=== PATIENT | female | born 1965 | race Caucasian/White ===

== ENCOUNTER 2022-03-13 09:06 | Outpatient (CLI) | payer OTHER, SELFPAY ==
--- NOTE | 2022-03-13 09:15 | CRLHL7_ITS ---
For Patients: As a result of the Century Cures Act, medical imaging exams and procedure reports are released immediately into your electronic medical record. You may view this report before your referring provider. If you have questions, please contact your health care provider. BILATERAL SCREENING MAMMOGRAM WITH COMPUTER-AIDED DETECTION AND TOMOSYNTHESIS TECHNIQUE: CC and MLO views were obtained. These mammographic images have been obtained using full-field digital technique. These mammographic images were interpreted with the benefit of computer-aided detection. Breast Tomosynthesis was used in this interpretation. COMPARISON FILM: 03/11/21, 03/28/20, 03/27/19. FINDINGS: There are scattered areas of fibroglandular density IMPRESSION: There is no radiographic evidence for malignancy. ASSESSMENT: BI-RADS Category 1: Negative RECOMMENDATION: Routine screening mammogram in 1 year. A lay language report of this examination will be provided to the patient. Sid Abraham M.D. Diagnostic Radiologist [email or web address] [place]/Dictated by: Sid Abraham MD @ 03/13/2022 11:07:00 AM (Electronically Signed)
== END 2022-03-13 09:07 | disposition home or self-care (01) ==
LOC: MAMMO 09:09
PROVIDERS: PCP Family Medicine; Visit Provider Family Medicine
DX: Z12.31 Encounter for screening mammogram for malignant neoplasm of breast (principal)
CPT/HCPCS: 77063; 77067

== ENCOUNTER 2022-06-04 10:57 | Outpatient (CLI) | payer OTHER, SELFPAY ==
[2022-06-04 10:10] LABS: Albumin* 4.3 g/dL (3.3-5.0); Chloride* 104 mmol/L (96-114); Sodium* 141 mmol/L (135-149)
[2022-06-04 10:11] LABS: Potassium* 4.2 mmol/L (3.6-5.1)
[2022-06-04 10:13] LABS: Alanine Aminotransferase* 37 U/L (4-35); Alkaline Phosphatase* 100 U/L (40-150); Aspartate Amino Transferase* 31 U/L (12-35); Bilirubin Total* 0.5 mg/dL (0.1-1.5); Blood Urea Nitrogen* 16 mg/dL (7-30); Calcium* 9.3 mg/dL (8.4-10.6); Carbon Dioxide* 29 mmol/L (20-32); Cholesterol* 251 mg/dL (90-199); Creatinine* 0.8 mg/dL (0.5-1.5); Estimated Glomerular Filt Rate 86 ml/min; Glucose* 110 mg/dL (60-115); Total Protein* 6.9 g/dL (6.0-8.3); Triglycerides* 187 mg/dL (40-149)
[2022-06-04 10:14] LABS: HDL Cholesterol* 50 mg/dL (>=50); LDL Cholesterol Calculated 164 mg/dL (<100)
[2022-06-04 10:28] LABS: Vitamin D 25 Hydroxy* 37 ng/mL (30-80)
[2022-06-05 08:25] LABS: Free T4 Free Thyroxine* 1.07 ng/dL (0.70-1.85)
== END 2022-06-04 10:58 | disposition home or self-care (01) ==
PROVIDERS: PCP Family Medicine; Visit Provider Family Medicine
DX: Z01.419 Encounter for gynecological examination (general) (routine) without abnormal findings (principal); I10 Essential (primary) hypertension; E78.5 Hyperlipidemia, unspecified; E55.9 Vitamin D deficiency, unspecified; E03.9 Hypothyroidism, unspecified
CPT/HCPCS: 80053; 80061; 82306; 84439; 84443

== ENCOUNTER 2023-01-08 15:48 | Outpatient (CLI) | payer OTHER, SELFPAY | END 2023-01-08 15:49 | disposition home or self-care (01) | LOC: LKVREF 15:50 | PROVIDERS: PCP Family Medicine; Visit Provider Family Medicine | DX: E03.9 Hypothyroidism, unspecified (principal); E78.5 Hyperlipidemia, unspecified; E55.9 Vitamin D deficiency, unspecified | CPT/HCPCS: 84443 ==

== ENCOUNTER 2023-01-18 13:46 | Outpatient (CLI) | payer OTHER, SELFPAY ==
--- NOTE | 2023-01-18 14:00 | CRLHL7_ITS ---
For Patients: As a result of the Century Cures Act, medical imaging exams and procedure reports are released immediately into your electronic medical record. You may view this report before your referring provider. If you have questions, please contact your health care provider. INDICATION: Chronic sinusitis. TECHNIQUE: Noncontrast CT images acquired through the paranasal sinuses. COMPARISON: None. FINDINGS: Subtotal opacification of the left maxillary sinus and left ethmoid infundibulum. Minimal right maxillary sinus mucosal thickening. The right ethmoid infundibulum is widely patent. Minimal mucosal thickening in the frontal recesses. The frontal sinuses are otherwise clear. Minimal mucosal thickening in the ethmoid air cells. Mild mucosal thickening left sphenoid sinus. The right sphenoid sinus is clear. The sphenoethmoidal recesses are patent. Mild 2 mm rightward nasal septal deviation and 3 mm rightward nasal septal deviation. No nasal cavity masses. Small right mastoid effusion. IMPRESSION: 1. Subtotal opacification of the left maxillary sinus and left ethmoid infundibulum. 2. Otherwise, minimal paranasal sinus mucosal disease. 3. Minimal rightward nasal septal deviation and small rightward directed septal spur. Please note that all CT scans at this facility use dose modulation, iterative reconstruction, and/or weight-based dosing when appropriate to reduce radiation dose to as low as reasonably achievable. Dictated by Severiano Durand MD @ 01/18/2023 6:59:27 PM (Electronically Signed)
== END 2023-01-18 13:47 | disposition home or self-care (01) ==
LOC: CT 13:46
PROVIDERS: PCP Family Medicine; Visit Provider Family Medicine
DX: J32.9 Chronic sinusitis, unspecified (principal); J32.0 Chronic maxillary sinusitis; J34.2 Deviated nasal septum
CPT/HCPCS: 70486

== ENCOUNTER 2023-04-13 13:50 | Outpatient (CLI) | payer OTHER, SELFPAY ==
--- NOTE | 2023-04-13 14:00 | CRLHL7_ITS ---
For Patients: As a result of the Century Cures Act, medical imaging exams and procedure reports are released immediately into your electronic medical record. You may view this report before your referring provider. If you have questions, please contact your health care provider. BILATERAL SCREENING MAMMOGRAM WITH COMPUTER-AIDED DETECTION AND TOMOSYNTHESIS TECHNIQUE: CC and MLO views were obtained. These mammographic images have been obtained using full-field digital technique. These mammographic images were interpreted with the benefit of computer-aided detection. Breast Tomosynthesis was used in this interpretation. COMPARISON FILM: 03/13/22, 03/11/21, 03/28/20. FINDINGS: There are scattered areas of fibroglandular density IMPRESSION: There is no radiographic evidence for malignancy. ASSESSMENT: BI-RADS Category 1: Negative RECOMMENDATION: Routine screening mammogram in 1 year. A lay language report of this examination will be provided to the patient. Sid Abraham M.D. Diagnostic Radiologist [email or web address] [place]/Dictated by: Sid Abraham MD @ 04/14/2023 12:42:00 PM (Electronically Signed)
== END 2023-04-13 13:51 | disposition home or self-care (01) ==
LOC: MAMMO 13:51
PROVIDERS: PCP Family Medicine; Visit Provider Family Medicine
DX: Z12.31 Encounter for screening mammogram for malignant neoplasm of breast (principal)
CPT/HCPCS: 77063; 77067

== ENCOUNTER 2023-09-22 10:15 | Outpatient (RCR) | payer OTHER, SELFPAY | END 2023-10-12 09:48 | disposition home or self-care (01) | PROVIDERS: PCP Family Medicine; Visit Provider Orthopaedic Surgery | DX: M25.512 Pain in left shoulder (principal); M75.102 Unspecified rotator cuff tear or rupture of left shoulder, not specified as traumatic; M62.81 Muscle weakness (generalized); Z51.89 Encounter for other specified aftercare | CPT/HCPCS: 80053; 80061; 82306; 84443; 97110; 97140; 97161 ==

== ENCOUNTER 2023-10-08 12:29 | Emergency (ER) | payer OTHER, SELFPAY ==
[2023-10-08 12:36] VITALS: BP 176/83; PULSE 62; RESP 16; TEMP 36.3; O2SAT 99
--- NOTE | 2023-10-08 13:18 | ED.GENADULT ---
HPI - General Adult General Chief complaint: Extremity Pain/Injury, Upper Stated complaint: arm pain Time Seen by Provider: 10/08/23 12:37 History of Present Illness HPI narrative: This 58-year-old female comes in reporting bilateral shoulder pain for the past several months. 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 She did see orthopedic surgeon about a month later which is about 4 months ago now and there was suspicion of rotator cuff impingement or bursitis. She did have an x-ray of her left shoulder with no acute findings. There was discussion about doing MRI but due to the cost and unlikely benefit for changing the treatment plan the MRI was not done. The patient did go through some physical therapy in this did help some. Since then she has started Crestor for lipid management and she wonders if this might be causing the pain. Her shoulder pain pre existed starting this medication. She states that she is having trouble sleeping at night due to shoulder pain. Related Data Home Medications Medication Instructions Recorded Confirmed cholecalciferol (vitamin D3) 10 400 unit PO BID 06/04/22 10/08/23 mcg (400 unit) tablet fluticasone propionate 50 1 spray intranasal QDAY PRN 08/13/23 10/08/23 mcg/actuation nasal spray,suspension (Allergy Relief (fluticasone)) Previous Rx's Medication Instructions Recorded hydrochlorothiazide 12.5 mg capsule 12.5 mg PO QDAY #90 caps 08/13/23 levothyroxine 75 mcg tablet 75 mcg PO QDAY #90 tabs 08/13/23 metoprolol succinate 100 mg 100 mg PO QDAY #90 tabs 08/13/23 tablet,extended release 24 hr rosuvastatin 5 mg tablet 5 mg PO QDAY #90 tabs 08/13/23 hydrocodone 5 mg-acetaminophen 325 1 tab PO Q4-6H PRN pain #15 tabs 10/08/23 mg tablet ketorolac 10 mg tablet 10 mg PO Q8H 5 days #15 tabs 10/08/23 Allergies Allergy/AdvReac Type Severity Reaction Status Date / Time Penicillins AdvReac Mild yeast Verified 10/08/23 12:35 infection Review of Systems Status of ROS: Reports: 10 or more systems reviewed and unremarkable except as noted in History and below Narrative: Constitutional: No fevers, no weight gain or loss. Eyes: No discharge. No vision changes. HENT: No congestion, no sore throat, no ear pain. Cardiovascular: No chest pain, no palpitations. Respiratory: No shortness of breath, no wheezes, no cough. Gastrointestinal: No abdominal pain, no vomiting, no diarrhea. Genitourinary: No dysuria, no hematuria. Musculoskeletal: Normal range of motion. Bilateral shoulder pain. Skin: No rashes, no pruritis. Neurological: No dizziness, weakness, sensory change, speech change. Endo/Heme/Allergies: No bruising or bleeding. No polydipsia. Pysch: no suicidality, no anxiety, no insomnia. All other systems reviewed and are negative. [facility] Medical History (Updated 10/08/23 @ 13:25 by Yang Mckeon MD) Prediabetes (08/13/23) ?R73.03 - Prediabetes (ICD-10) White coat syndrome with diagnosis of hypertension ?I10 - Essential (primary) hypertension (ICD-10) Endometrial hyperplasia (10/13/12) ?N85.00 - Endometrial hyperplasia, unspecified (ICD-10) Surgical History Normal colonoscopy History of third molar tooth extraction ?K08.409 - Partial loss of teeth, unspecified cause, unspecified class (ICD-10) History of hysteroscopy (10/26/12) ?Z98.890 - Other specified postprocedural states (ICD-10) History of section (1998) ?Z98.891 - History of uterine scar from previous surgery (ICD-10) Family History (Updated 08/13/23 @ 13:31 by Ilda Lee MD) Son Bipolar disorder Sister Celiac disease Carotid artery stenosis Family/Other High blood pressure Father High blood pressure Prostate cancer Maternal Grandmother Thyroid disease Brother Prostate cancer Social History (Updated 08/13/23 @ 13:31 by Ilda Lee MD) 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 HEENT: Normocephalic, atraumatic. Neck: Normal range of motion. Nontender. Supple. Heart: Regular. No murmurs. Normal rate. Intact distal pulses. Lungs: Clear to auscultation. No chest discomfort. No wheezes, rhonchi, or rales. Abdomen: Normal bowel sounds. Nontender. No rebound tenderness. Genitalia: Deferred. Back: No midline tenderness. Normal range of motion. Extremities: The patient has normal range of motion of both shoulders but indicates pain with doing it. There is no sign of deformity or swelling. Skin: Intact. No rash. Warm. No erythema or pallor. Neurologic: No altered sensation. No weakness. Alert and oriented. Psychiatric: No suicidality. No anxiety or depression. No insomnia. Nursing notes and vitals signs are reviewed. Const: Vital Signs, click to edit/add: Vital Signs - 24 hr 10/08/23 12:36 Temperature 97.4 F L Pulse Rate [Pulse Oximeter] 62 Respiratory Rate 16 Blood Pressure [Ri ght Upper Arm] 176/83 H Pulse Oximetry 99 Oxygen Delivery Me thod Room Air Course Vital Signs Vital signs: Initial Vital Signs Temperature 97.4 F L 10/08/23 12:36 Temperature Source Temporal Artery Scan 10/08/23 12:36 Pulse Rate 62 10/08/23 12:36 Respiratory Rate 16 10/08/23 12:36 Blood Pressure 176/83 H 10/08/23 12:36 Blood Pressure Mean 114 H 10/08/23 12:36 Blood Pressure Position Sitting 10/08/23 12:36 Pulse Oximetry 99 10/08/23 12:36 Oxygen Delivery Method Room Air 10/08/23 12:36 Vital Signs Temperature 97.4 F L 10/08/23 12:36 Pulse Rate 62 10/08/23 12:36 Respiratory Rate 16 10/08/23 12:36 Blood Pressure 176/83 H 10/08/23 12:36 Pulse Oximetry 99 10/08/23 12:36 Oxygen Delivery Method Room Air 10/08/23 12:36 Temperature 97.4 F L 10/08/23 12:36 Pulse Rate 62 10/08/23 12:36 Respiratory Rate 16 10/08/23 12:36 Blood Pressure 176/83 H 10/08/23 12:36 Pulse Oximetry 99 10/08/23 12:36 Oxygen Delivery Method Room Air 10/08/23 12:36 Medical Decision Making MDM Narrative Medical decision making narrative: This patient comes in with bilateral shoulder pain and does have frequent use of her shoulders with her job. She did present orthopedic clinic several months ago and there was suspicion of rotator cuff tendinopathy or bursitis. She has been taking Tylenol or ibuprofen occasionally without much relief. She brings the question that this may be an adverse effect to starting Crestor however her symptoms pre existed starting this medicine. I did present options going forward including imaging studies and treatment options. The patient did receive prescriptions for Toradol and [place]. Discharge Plan Discharge Clinical Impression: Bilateral shoulder pain Patient Disposition: Home, Self-Care Condition: Unchanged Additional Instructions: Take medication as prescribed and needed. Activity as tolerated. Follow-up with orthopedic clinic. Call [phone] for appointment. Prescriptions: New hydrocodone-acetaminophen 5-325 mg tablet 1 tab PO Q4-6H PRN (Reason: pain) Qty: 15 0RF ketorolac 10 mg tablet 10 mg PO Q8H 5 Days Qty: 15 0RF No Action cholecalciferol (vitamin D3) 10 mcg (400 unit) tablet 400 unit PO BID fluticasone propionate [Allergy Relief (fluticasone)] 50 mcg/actuation spray,suspension 1 spray intranasal QDAY PRN Rx Instructions: administer into each nostril metoprolol succinate 100 mg tablet extended release 24 hr 100 mg PO QDAY Qty: 90 3RF levothyroxine 75 mcg tablet 75 mcg PO QDAY Qty: 90 3RF hydrochlorothiazide 12.5 mg capsule 12.5 mg PO QDAY Qty: 90 3RF rosuvastatin 5 mg tablet 5 mg PO QDAY Qty: 90 3RF Follow Up/Referrals: Ilda Lee MD [Primary Care Provider] - Stand Alone Forms: Meet My Friend[employer] Info Instructions
--- OUTSIDE RECORDS SUMMARY | 2023-10-08 13:28 | XMS_ITS | Clinical Summary ---
Author Name Unknown Organization [facility] Address [place], [place] [address] Care Team Providers Care Yarn Skeins Examiner Name Role Phone Beata Chen MD Primary Care Provider Allergies Active Allergy Reactions Criticality Noted Date Comments Penicillins Yeast Infection (NO INFECTIONS WITH LAST FEW Rx's) Medications Medication Sig Dispensed Refills Start Date End Date Status levothyroxine (SYNTHROID) 75 mcg tabletIndications:Unspe cified hypothyroidism TAKE 1 TABLET BY MOUTH BEFORE BREAFAST. 90 tablet 0 05/30/2013 Active metoprolol (LOPRESSOR) 50 mg tablet TAKE 1 TABLET BY MOUTH TWO TIMES A DAY . 60 tablet 1 07/01/2013 Active hydrochlorothiazide (HCTZ) 25 mg tablet TAKE 1/2 TABLET BY MOUTH ONCE DAILY 30 tablet 0 11/01/2013 Active Active Problems Problem Noted Date Diagnosed Date Simple endometrial hyperplasia without atypia Premenopausal menorrhagia 09/14/2011 Endometrial polyp 09/14/2011 Unspecified hypothyroidism 05/06/2007 Unspecified asthma(493.90) 04/16/2006 Unspecified essential hypertension 04/16/2006 Immunizations Name Administration Dates Next Due Influenza, IIV3 (Age >=3 years) 04/26/2012,03/21,05/06/2007,04/15/2006 MMR 09/01/2006 Td (Age >=7 Years) 03/24/2000,11/08/1989 Tdap 03/21/2010 Family History Medical History Relation Name Comments Cancer-prostate Father CANCER WITH METASTASIS TO BONE, ALLERGIES, HYPERTENSION Good Health Mother Osteoporosis Sister 2 GI Disease Sister 3 Celiac Relation Name Status Comments Brother Alive Child Alive x3, DALTON 05/31/96, WILLIAM 11/27/98, MONSERRAT 09/01/00 Father (Age 73) BORN 192 Mother Alive BORN 1924 Sister 1 Alive x3 Sister 2 Sister 3 Social History Tobacco Use Types Packs/Day Years Used Date Smoking Tobacco: Never Smokeless Tobacco: Never Alcohol Use Standard Drinks/Week Comments No 0 (1 standard drink = 0.6 oz pur e alcohol) Sex and Gender Information Value Date Recorded Sex Assigned at Not on file Gender Identity Not on file Sexual Orientation Not on file Obstetrics History Para Term AB IAB SAB Ectopic Multiple Livin g Live Births 3 3 3 Date Outcome GA Total Labor Labor/2nd/3rd Weight Sex Delivery Anes PTL Esthela A1 A5 Name Cl in Para Vag Para Vag Para Last Filed Vital Signs Vital Sign Reading Time Taken Comments Blood Pressure 128/82 06/08/2012 1:17 PM INTAKE MAN Pulse 79 04/28/2012 3:20 PM [facility]TAKE MAN Temperature 36.6 ??C (97.9 ??F) 06/08/2012 1:17 PM CS T Respiratory Rate 18 04/28/2012 3:20 PM INTAKE MAN Oxygen Saturation 98% 04/28/2012 3:20 PM INTAKE MAN Inhaled Oxygen Concentration - - Weight 76.2 kg (168 lb) 06/08/2012 1:17 PM INTAKE MAN Height 162.6 cm (5' 4) 04/28/2012 10:55 AM INTAKE MAN Body Mass Index 28.84 04/28/2012 10:55 AM INTAKE MAN Plan of Treatment Health Maintenance Due Date Last Done Comments Depression screening for age 12+ 1977 HIV for age 15-65 02/29/1980 BMI (ht and wt on same day) for age 18+ 1983 Hepatitis C screening for age 18-79 1983 Colonoscopy through age 75 2010 Mammogram for age 45-75 10/21/2012 10/22/19 12, 03/26/2010, 07/20/2008, Additional history exists Zoster (shingles) series for age 50+ (1 of 2) 2015 Lipids for age 45-75 10/25/2015 10/24/2010, 07/06/2008, 04/21/2006 Tetanus booster 03/21/2020 03/21/2010, 03/01, 11/08/1989 Pap test for age 21-65 06/28/2022 0, 06/28/2019, 02/27/2015, Additional history exists COVID-19 vaccine series ( season) 2023 Influenza for age 50-64 01/30/2024 04/26/20 12, 03/21/2010, 05/06/2007, Additional history exists Tdap Completed 03/21/2010 Pneumococcal series for age 6-64 Aged Out No longer eligible based on patient's age to complete this topic Procedures Procedure Name Priority Date/Time Associated Diagnosis Comments LOCKMAKER THIN PREP PAP SCREEN IMAGED Routine 06/28/2019 8:14 AM INTAKE MAN XR MAMMO BILAT SCREEN FFDM (IA) Routine 10/22/2011 11:00 AM CDT Screening mammogram LIPID PANEL W REFLEX MEASURED LDL Timed 10/24/2010 8:35 AM CDT Screening, lipid from Last 3 Months or Most Recently Relevant to Health Maintenance Results * LOCKMAKER THIN PREP PAP SCREEN IMAGED (06/28/2019 8:14 AM INTAKE MAN) Case Report Gynecologic Cytology Report ? Case: [id number] ? Authorizing Provider: ??Ilda Lee MD ??Collected: ? 06/28/2019 0814 ? Ordering Location: ? [facility] ?Received: ?06/29/2019 0933 ? First Screen: ?Lisliz, Alexis ? Rescreen: ?[place] ? Specimen: ?LOCKMAKER ThinPrep Vial Screening, Cervical/Vaginal ? 07/10/2019 2:39 PM [facility] INTERPRETATION/ RESULT NEGATIVE FOR INTRAEPITHELIAL LESION OR MALIGNANCY (NIL) (none) 07/10/2019 2:[address] [facility] IMEN ADEQUACY Satisfactory for evaluation Endocervical cells cannot be evaluated due to severe atrophy 07/10/2019 2:39 PM [facility] HPV REQUEST HPV and PAP 07/10/2019 2:39 PM [facility] Additional Information 07/10/2019 2:39 PM [facility] Comment: Interpreted at [facility] - [address] [facility] [address], [place] [address] Automated Review Successful 07/10/2019 2:[address] [facility] Comment:Specimen processed s uccessfully by automated recovery rn device, ThinPrep Imaging System, [employer] ANCILLARY TESTING LOCKMAKER HPV Ordered, Please see separate report 07/10/2019 2:39 PM [facility] Note The pap test is a screening technique, not a diagnostic procedure. It is used primarily to screen for squamous cancers and precursor lesions. Published studies have shown that it is subject to both false negative and false positive results. The pap test should not be used as the sole means to diagnose or exclude pre-malignant and malignant lesions. 07/10/2019 2:39 PM INTAKE MAN [facility] Other (Cervical/Vagina l) 06/28/2019 8:14 AM INTAKE MAN 06/29/2019 9:33 AM INTAKE MAN Ilda Lee MD PATHOLOGY/CYTOLO GY [facility] [address] [place] [address], [place] * XR MAMMO BILAT SCREEN FFDM (10/22/2011 11:00 AM CDT) Anatomical Region Laterality Modality BREASTS, Breast Left, Breast Right Bilateral Mammography Impressions 10/22/2011 1:53 PM CDT ??There is no radiographic evidence for malignancy. ??Recommend annual mammograms. A lay language report of this examination will be provided to the patient. MAMMOGRAM ASSESSMENT: ??ACR 1 Negative Narrative 10/22/2011 1:53 PM CDT XR MAMMO BILAT SCREEN FFDM [G0202.0] CLINICAL HISTORY: ??This is an asymptomatic 46 y.o. patient. INDICATION FOR EXAM: Mammogram Screening. TECHNIQUE: CC & MLO views were obtained. ??This digital study was evaluated with the assistance of Computer-Aided Detection. ?? COMPARISON FILM: Yes 03/26/10 [facility] 07/20/08 [facility] FINDINGS: ??Mammographically, the breast tissue has scattered fibroglandular densities (approximately 25% - 50% glandular). ??There are no dominant masses, suspicious micro calcifications or areas of architectural distortion. Procedure Note Akbar Gilliam MD - 10/22/2011 XR MAMMO BILAT SCREEN FFDM [G0202.0] CLINICAL HISTORY: This is an asymptomatic 46 y.o. patient. INDICATION FOR EXAM: Mammogram Screening. TECHNIQUE: CC & MLO views were obtained. This digital study was evaluatedwith the assistance of Computer-Aided Detection. COMPARISON FILM: Yes 03/26/10 [facility] 07/20/08 [facility] FINDINGS: Mammographically, the breast tissue has scatteredfibroglandular densities (approximately 25% - 50% glandular). There areno dominant masses, suspicious micro calcifications or areas ofarchitectural distortion. IMPRESSION: There is no radiographic evidence for malignancy. Recommendannual mammograms. A lay language report of this examination will be provided to the patient. MAMMOGRAM ASSESSMENT: ACR 1 Negative Beata Chen MD MAMMO * (ABNORMAL) LIPID PANEL W REFLEX MEASURED LDL (10/24/2010 8:35 AM CDT) CHOLESTEROL,TOTAL 183 110 - 199 mg/dL [facility] TRIGLYCERIDES 124 <150 mg/dL [facility] HDL CHOLESTEROL 35(L) >40 mg/dL [facility] CHOL/HDL RATIO 5.23(H) <4.51 [facility] LDL CHOLESTEROL 123 60 - 130 mg/dL [facility] PATIENT STATUS Fasting [facility] Blood specimen (specimen) BLOOD SPECIMEN / Unknown 10/24/2010 8:35 AM CDT 10/24/2010 8:27 AM CDT Beata Chen MD CHEMISTRY [facility] [address] [place] [address] from Last 3 Months or Most Recently Relevant to Health Maintenance Advance Directives * Full Code (Latest Code Status on File) Date Activated Date Inactivated Comments 04/28/2012 11:01 AM 04/28/2012 6:26 PM * Full Code Date Activated Date Inactivated Comments 11/17/2011 8:38 AM 11/17/2011 5:35 PM Care Teams Yarn Skeins Examiner Relationship Specialty Start Date End Date Beata Chen MD [address] [place] [address] PCP - General 02/06/05
== END 2023-10-08 13:43 | disposition home or self-care (01) ==
PROVIDERS: Emergency Provider Emergency Medicine Emergency Medical Services; PCP Family Medicine
DX: M25.512 Pain in left shoulder (principal); M25.511 Pain in right shoulder
CPT/HCPCS: 99283; 99284

== ENCOUNTER 2023-11-15 07:40 | Outpatient (CLI) | payer OTHER, SELFPAY ==
--- OUTSIDE RECORDS SUMMARY | 2023-11-17 03:08 | XMS_ITS | Clinical Summary ---
Author Organization [employer] [facility] [employer] [facility] Address [place], [place] [address] Care Team Providers Care Lead Carpenter Name Role Phone Beata Chen MD Primary [...] 11/27/98, [place] 09/01/00 Father (Age 73) BORN 1922 Mother Alive BORN 1924 Sister 1 Alive [...] 3 3 Date Outcome GA Total Labor Labor//3rd Weight Sex Type Anes PTL Esthela A1 A5 Name Clin Para Vag Para Vag Para C-Secti on Last Filed Vital Signs Vital Sign Reading Time Taken Comments Blood Pressure 128/82 06/08/2012 1:17 PM MOLD SHEET CLEANER Pulse 79 04/28/2012 3:20 PM MOLD SHEET CLEANER Temperature 36.6 ??C (97.9 ??F) 06/08/2012 1:17 PM CS T Respiratory Rate 18 04/28/2012 3:20 PM MOLD SHEET CLEANER Oxygen Saturation 98% 04/28/2012 3:20 PM MOLD SHEET CLEANER Inhaled Oxygen Concentration - - Weight 76.2 kg (168 lb) 06/08/2012 1:17 PM MOLD SHEET CLEANER Height 162.6 cm (5' 4) 04/28/2012 10:55 AM MOLD SHEET CLEANER Body Mass Index 28.84 04/28/2012 10:55 AM MOLD SHEET CLEANER Plan of Treatment Health Maintenance Due Date [...] 02/27/2015, Additional history exists COVID-19 vaccine series (2022-24 season) 2023 Influenza for age 50-64 01/30/2024 04/26/20 12, 03/21/2010, 05/06/2007, Additional history exists Tdap Completed 03/21/2010 Pneumococcal series for age 6-64 Aged Out No longer eligible based on patient's age to complete this topic Procedures Procedure Name Priority Date/Time Associated Diagnosis Comments FRENCH PASTRY COOK THIN PREP PAP SCREEN IMAGED Routine 06/28/2019 8:14 AM MOLD SHEET CLEANER XR MAMMO BILAT SCREEN FFDM (IA) Routine 10/22/2011 11:00 AM CDT Screening mammogram LIPID PANEL W REFLEX MEASURED LDL Timed 10/24/2010 8:35 AM CDT Screening, lipid from Last 3 Months or Most Recently Relevant to Health Maintenance Results * FRENCH PASTRY COOK THIN PREP PAP SCREEN IMAGED (06/28/2019 8:14 AM MOLD SHEET CLEANER) Case Report Gynecologic Cytology Report ? Case: [id number] ? Authorizing Provider: ??Ilda Lee MD ??Collected: ? 06/28/2019 0814 ? Ordering Location: ? [facility] ?Received: ?06/29/2019 0933 ? First Screen: ?Sondra, Alexis ? Rescreen: ?[place] ? Specimen: ?FRENCH PASTRY COOK ThinPrep Vial Screening, Cervical/Vaginal ? 07/10/2019 2:39 PM [facility] INTERPRETATION/ RESULT NEGATIVE FOR INTRAEPITHELIAL LESION OR MALIGNANCY (NIL) (none) 07/10/2019 2:39 PM [facility] IMEN ADEQUACY Satisfactory for evaluation Endocervical cells cannot be evaluated due to severe atrophy 07/10/2019 2:39 PM [facility] HPV REQUEST HPV and PAP 07/10/2019 2:39 PM [facility] Additional Information 07/10/2019 2:39 PM [facility] Comment: Interpreted at [facility], Central Laboratory - [address] [facility] [address] [address] Automated Review Successful 07/10/2019 2:39 PM [facility] Comment:Specimen processed s uccessfully by automated economic research assistant device, ThinPrep Imaging System, [employer] ANCILLARY TESTING FRENCH PASTRY COOK HPV Ordered, Please see separate report 07/10/2019 2:39 PM [facility] Note The pap test is [...] pre-malignant and malignant lesions. 07/10/2019 2:39 PM MOLD SHEET CLEANER [facility] Other (Cervical/Vagina l) 06/28/2019 8:14 AM MOLD SHEET CLEANER 06/29/2019 9:33 AM MOLD SHEET CLEANER Ilda Lee MD PATHOLOGY/[facility] [address] [place] [address], [place] * XR MAMMO BILAT SCREEN FFDM [...] Computer-Aided Detection. ?? COMPARISON FILM: Yes 03/26/10 [facility] 07/20/08 [facility] FINDINGS: ??Mammographically, the breast tissue [...] of Computer-Aided Detection. COMPARISON FILM: Yes 03/26/10 [facility] 07/20/08 [facility] FINDINGS: Mammographically, the breast tissue [...] CDT) CHOLESTEROL,TOTAL 183 110 - 199 mg/dL [facility] TRIGLYCERIDES 124 <150 mg/dL [facility] HDL CHOLESTEROL 35(L) >40 mg/dL [facility] CHOL/HDL RATIO 5.23(H) <4.51 [facility] LDL CHOLESTEROL 123 60 - 130 mg/dL [facility] PATIENT STATUS Fasting [facility] Blood specimen (specimen) BLOOD SPECIMEN / Unknown 10/24/2010 8:35 AM CDT 10/24/2010 8:27 AM CDT Beata Chen MD CHEMISTRY [facility] [address] [place] [address] from Last 3 Months or Most Recently Relevant to Health Maintenance Advance Directives * Full Code (Latest Code Status on File) Date Activated Date Inactivated Comments 04/28/2012 11:01 AM 04/28/2012 6:26 PM * Full Code Date Activated Date Inactivated Comments 11/17/2011 8:38 AM 11/17/2011 5:35 PM Care Teams Lead Carpenter Relationship Specialty Start Date End Date Beata Chen MD [address] [place] [address] PCP - General 02/06/05
== END 2023-11-15 07:41 | disposition home or self-care (01) ==
LOC: NFLDREF 11-17 03:06
PROVIDERS: PCP Family Medicine; Referring Provider Family Medicine; Visit Provider Family Medicine
DX: E78.5 Hyperlipidemia, unspecified (principal)
CPT/HCPCS: 80061

== ENCOUNTER 2024-04-14 14:52 | Outpatient (CLI) | payer OTHER, SELFPAY ==
--- OUTSIDE RECORDS SUMMARY | 2024-04-14 14:54 | XMS_ITS | Clinical Summary ---
Author Organization [employer] [facility] [employer] [facility] Address [place], [place] [address] Care Team Providers Care Physical Medicine Teacher Name Role Phone Beata Chen MD Primary [...] Comments Blood Pressure 128/82 06/08/2012 1:17 PM LEAD CARE MANAGER Pulse 79 04/28/2012 3:20 PM LEAD CARE MANAGER Temperature 36.6 ??C (97.9 ??F) 06/08/2012 1:17 PM CS T Respiratory Rate 18 04/28/2012 3:20 PM LEAD CARE MANAGER Oxygen Saturation 98% 04/28/2012 3:20 PM LEAD CARE MANAGER Inhaled Oxygen Concentration - - Weight 76.2 kg (168 lb) 06/08/2012 1:17 PM LEAD CARE MANAGER Height 162.6 cm (5' 4) 04/28/2012 10:55 AM LEAD CARE MANAGER Body Mass Index 28.84 04/28/2012 10:55 AM LEAD CARE MANAGER Plan of Treatment Health Maintenance Due Date [...] 02/27/2015, Additional history exists COVID-19 vaccine series (2023- season) 2024 Influenza for age 50-64 01/30/2024 04/26/20 12, 03/21/2010, 05/06/2007, Additional history exists Tdap Completed 03/21/2010 Pneumococcal series for age 6-64 Aged Out No longer eligible based on patient's age to complete this topic Procedures Procedure Name Priority Date/Time Associated Diagnosis Comments RETAIL BRAND AMBASSADOR THIN PREP PAP SCREEN IMAGED Routine 06/28/2019 8:14 AM LEAD CARE MANAGER XR MAMMO BILAT SCREEN FFDM (IA) Routine 10/22/2011 11:00 AM CDT Screening mammogram LIPID PANEL W REFLEX MEASURED LDL Timed 10/24/2010 8:35 AM CDT Screening, lipid from Last 3 Months or Most Recently Relevant to Health Maintenance Results * RETAIL BRAND AMBASSADOR THIN PREP PAP SCREEN IMAGED (06/28/2019 8:14 AM LEAD CARE MANAGER) Case Report Gynecologic Cytology Report ? Case: [id number] ? Authorizing Provider: ??Idla Lee MD ??Collected: ? 06/28/2019 0814 ? Ordering Location: ? [facility] ?Received: ?06/29/2019 0933 ? First Screen: ?Sondra, Alexis ? Rescreen: ?[place] ? Specimen: ?RETAIL BRAND AMBASSADOR ThinPrep Vial Screening, Cervical/Vaginal ? 07/10/2019 2:39 PM [facility] INTERPRETATION/ RESULT NEGATIVE FOR INTRAEPITHELIAL LESION OR MALIGNANCY (NIL) (none) 07/10/2019 2:39 PM [facility] IMEN ADEQUACY Satisfactory for evaluation Endocervical cells cannot be evaluated due to severe atrophy 07/10/2019 2:39 PM [facility] HPV REQUEST HPV and PAP 07/10/2019 2:39 PM [facility] Additional Information 07/10/2019 2:39 PM [facility] Comment: Interpreted at [facility], Central Laboratory - [address] [facility] [address], [place] [address] Automated Review Successful 07/10/2019 2:39 PM [facility] Comment:Specimen processed s uccessfully by automated loom operator apprentice device, ThinPrep Imaging System, [employer] ANCILLARY TESTING RETAIL BRAND AMBASSADOR HPV Ordered, Please see separate report 07/10/2019 2:39 PM [facility] Note The pap test is a screening technique, not a diagnostic procedure. It is used primarily to screen for squamous cancers and precursor lesions. Published studies have shown that it is subject to both false negative and false positive results. The pap test should not be used as the sole means to diagnose or exclude pre-malignant and malignant lesions. 07/10/2019 2:39 PM LEAD CARE MANAGER [facility] Other (Cervical/Vagina l) 06/28/2019 8:14 AM LEAD CARE MANAGER 06/29/2019 9:33 AM LEAD CARE MANAGER Ilda Lee MD PATHOLOGY/[facility] [address] [place] [address], [place] * XR MAMMO BILAT SCREEN FFDM [...] Computer-Aided Detection. ?? COMPARISON FILM: Yes 03/26/10 [facility] 07/20/08 [facility] FINDINGS: ??Mammographically, the breast tissue has [...] of Computer-Aided Detection. COMPARISON FILM: Yes 03/26/10 [facility] 07/20/08 [facility] FINDINGS: Mammographically, the breast tissue has [...] CDT) CHOLESTEROL,TOTAL 183 110 - 199 mg/dL [facility] TRIGLYCERIDES 124 <150 mg/dL [facility] HDL CHOLESTEROL 35(L) >40 mg/dL [facility] CHOL/HDL RATIO 5.23(H) <4.51 [facility] LDL CHOLESTEROL 123 60 - 130 mg/dL [facility] PATIENT STATUS Fasting [facility] Blood specimen (specimen) BLOOD SPECIMEN / Unknown 10/24/2010 8:35 AM CDT 10/24/2010 8:27 AM CDT Beata Chen MD CHEMISTRY [facility] [address] [place] [place] [address] from Last 3 Months or Most Recently Relevant to Health Maintenance Advance Directives * Full Code (Latest Code Status on File) Date Activated Date Inactivated Comments 04/28/2012 11:01 AM 04/28/2012 6:26 PM * Full Code Date Activated Date Inactivated Comments 11/17/2011 8:38 AM 11/17/2011 5:35 PM Care Teams Physical Medicine Teacher Relationship Specialty Start Date End Date Beata Chen MD [address] [place] [address] PCP - General 02/06/05
--- NOTE | 2024-04-14 15:00 | CRLHL7_ITS ---
For Patients: As a result of the Century Cures Act, medical imaging exams and procedure reports are released immediately into your electronic medical record. You may view this report before your referring provider. If you have questions, please contact your health care provider. BILATERAL SCREENING MAMMOGRAM WITH COMPUTER-AIDED DETECTION AND TOMOSYNTHESIS TECHNIQUE: CC and MLO views were obtained. These mammographic images have been obtained using full-field digital technique. These mammographic images were interpreted with the benefit of computer-aided detection. Breast Tomosynthesis was used in this interpretation. COMPARISON FILM: 04/13/23, 03/13/22, 03/11/21. FINDINGS: There are scattered areas of fibroglandular density. IMPRESSION: There is no radiographic evidence for malignancy. ASSESSMENT: BI-RADS Category 1: Negative RECOMMENDATION: Routine screening mammogram in 1 year. A lay language report of this examination will be provided to the patient. Sid Abraham M.D. Diagnostic Radiologist [email or web address] SP/Dictated by: Sid Abraham MD @ 04/17/2024 9:49:00 AM (Electronically Signed)
== END 2024-04-14 14:53 | disposition home or self-care (01) ==
LOC: MAMMO 14:53
PROVIDERS: PCP Family Medicine; Visit Provider Family Medicine
DX: Z12.31 Encounter for screening mammogram for malignant neoplasm of breast (principal)
CPT/HCPCS: 77063; 77067

== ENCOUNTER 2024-08-29 07:50 | Outpatient (CLI) | payer BC, SELFPAY | END 2024-08-29 07:51 | disposition home or self-care (01) | LOC: NFLDREF 22:40 | PROVIDERS: PCP Family Medicine; Referring Provider Family Medicine; Visit Provider Family Medicine | DX: E03.9 Hypothyroidism, unspecified (principal); I10 Essential (primary) hypertension; E78.5 Hyperlipidemia, unspecified; R73.01 Impaired fasting glucose | CPT/HCPCS: 80053; 80061; 84439; 84443 ==

== ENCOUNTER 2024-08-30 08:11 | Outpatient (CLI) | payer BC, SELFPAY ==
[2024-09-01 04:35] LABS: HPV Source Cervix; HPV, High Risk by TMA Not Detected
== END 2024-08-30 08:12 | disposition home or self-care (01) ==
PROVIDERS: PCP Family Medicine; Visit Provider Family Medicine
DX: Z12.4 Encounter for screening for malignant neoplasm of cervix (principal); Z11.51 Encounter for screening for human papillomavirus (HPV)
CPT/HCPCS: 87624; 87625; 88141; 88142

== ENCOUNTER 2025-03-26 09:29 | Outpatient (CLI) | payer BC, SELFPAY ==
--- NOTE | 2025-03-26 10:32 | P.ANES_ITS ---
Anesthesia Charges Start Date/Time Anesthesia Start Date: 03/26/25 Anesthesia Start Time: 09:55 Stop Date/Time Anesthesia Stop Date: 03/26/25 Anesthesia Stop Time: 10:24 Coding CPT Codes CPT Codes: ANÍBAL LWR INTST NDSC NOS - 70815 ([id number]) P2 - PATIENT W/MILD SYST DISEASE, QK - SATIN FINISHER 2-4 CNCRNT ANES PROC, QX - HOTEL DINING ROOM CASHIER SVC W/ MD MED DIRECTION
--- NOTE | 2025-03-26 10:32 | W.ANESCHARGE ---
Anesthesia Charges Start Date/Time Anesthesia Start Date: 03/26/25 Anesthesia Start Time: 09:55 Stop Date/Time Anesthesia Stop Date: 03/26/25 Anesthesia Stop Time: 10:24 Coding CPT Codes CPT Codes: ANÍBAL LWR INTST NDSC NOS - 60783 ([id number]) P2 - PATIENT W/MILD SYST DISEASE, QK - MANUFACTURING ENGINEER ASSEMBLY 2-4 CNCRNT ANES PROC, QX - CONSULTING SME SVC W/ MD MED DIRECTION
--- NOTE | 2025-03-26 10:54 | P.ANES_ITS ---
Anesthesia Charges Start Date/Time Anesthesia Start Date: 03/26/25 Anesthesia Start Time: 09:55 Stop Date/Time Anesthesia Stop Date: 03/26/25 Anesthesia Stop Time: 10:24 Coding CPT Codes CPT Codes: ANÍBAL LWR INTST NDSC NOS - 70292 ([id number]) QK - HEMP FIBER TAKER OFF 2-4 CNCRNT ANÍBAL PROC, QX - KITCHEN HELP HANDYMAN SVC W/ MD MED DIRECTION, P2 - PATIENT W/MILD SYST DISEASE
--- NOTE | 2025-03-26 10:54 | W.ANESCHARGE ---
Anesthesia Charges Start Date/Time Anesthesia Start Date: 03/26/25 Anesthesia Start Time: 09:55 Stop Date/Time Anesthesia Stop Date: 03/26/25 Anesthesia Stop Time: 10:24 Coding CPT Codes CPT Codes: ANÍBAL LWR INTST NDSC NOS - 76837 ([id number]) QK - HAND SAMPLE MAKER 2-4 CNCRNT ANÍBAL PROC, QX - DELIVERER MERCHANDISE SVC W/ MD MED DIRECTION, P2 - PATIENT W/MILD SYST DISEASE
== END 2025-03-26 09:30 | disposition home or self-care (01) ==
PROVIDERS: PCP Family Medicine; Visit Provider Internal Medicine
DX: Z12.11 Encounter for screening for malignant neoplasm of colon (principal); D12.2 Benign neoplasm of ascending colon; D12.5 Benign neoplasm of sigmoid colon; K57.30 Diverticulosis of large intestine without perforation or abscess without bleeding
CPT/HCPCS: 00811; 00812; 45380; 45385; 88305; J2704

== ENCOUNTER 2025-03-28 07:40 | Outpatient (CLI) | payer BC, SELFPAY | END 2025-03-28 07:41 | disposition home or self-care (01) | LOC: NFLDREF 03-29 18:12 | PROVIDERS: PCP Family Medicine; Referring Provider Family Medicine; Visit Provider Family Medicine | DX: I10 Essential (primary) hypertension (principal); E03.9 Hypothyroidism, unspecified | CPT/HCPCS: 80053; 84439; 84443 ==

== ENCOUNTER 2025-04-16 09:35 | Outpatient (CLI) | payer BC, SELFPAY | END 2025-04-16 09:36 | disposition home or self-care (01) | LOC: NFLDREF 04-19 07:44 | PROVIDERS: PCP Family Medicine; Referring Provider Family Medicine; Visit Provider Family Medicine | DX: I10 Essential (primary) hypertension (principal) | CPT/HCPCS: 80048 ==

== ENCOUNTER 2025-05-09 09:04 | Outpatient (CLI) | payer BC, SELFPAY ==
--- NOTE | 2025-05-09 09:15 | CRLHL7_ITS ---
For Patients: As a result of the Century Cures Act, medical imaging exams and procedure reports are released immediately into your electronic medical record. You may view this report before your referring provider. If you have questions, please contact your health care provider. INDICATION: BILATERAL SCREENING MAMMOGRAM, ASYMPTOMATIC 60 Y/O FEMALE COMPARISON: 04/14/2024, 04/13/2023, 03/13/2022 TECHNIQUE: Digital mammogram in CC and MLO projections including computer-aided detection (CAD) and tomosynthesis. BREAST COMPOSITION: There are scattered areas of fibroglandular density. FINDINGS: No suspicious findings. ASSESSMENT: BI-RADS 1 Negative RECOMMENDATION: Annual screening mammogram. A lay language report of this examination will be provided to the patient. Dictated by: Sid Abraham MD @ 05/09/2025 13:09:07 (Electronically Signed)
== END 2025-05-09 09:05 | disposition home or self-care (01) ==
LOC: MAMMO 09:04
PROVIDERS: PCP Family Medicine; Visit Provider Family Medicine
DX: Z12.31 Encounter for screening mammogram for malignant neoplasm of breast (principal)
CPT/HCPCS: 77063; 77067